=== PATIENT | female | born 1955 | race Caucasian/White ===

== ENCOUNTER → 2024-06-03 14:45 | Outpatient (CLI) | payer MEDICARE, SELFPAY ==
--- NOTE | 2024-06-03 14:46 | DI.US.S_ITS ---
PROCEDURE: US ABDOMEN LIMITED INDICATIONS: ASSESS FOR RIGHT INGUINAL HERNIA TECHNIQUE: Real-time focused scanning was performed of the inguinal region, with image documentation. COMPARISON: None. FINDINGS: No right inguinal hernia. IMPRESSION: No right inguinal hernia. Dictated by: Romel Layne M.D. on 06/05/2024 at 10:14 Approved by: Romel Layne M.D. on 06/05/2024 at 10:14
== END ==
PROVIDERS: PCP Family Medicine; Referring Provider Obstetrics & Gynecology; Visit Provider Obstetrics & Gynecology
DX: R10.31 Right lower quadrant pain (principal); G89.29 Other chronic pain
CPT/HCPCS: 76705